=== PATIENT | female | born 1960 | race African-American/Black ===

== ENCOUNTER 2021-02-08 20:09 | Inpatient (IN) | payer OTHER ==
[2021-02-08 22:20] VITALS: BMI 34.5
[2021-02-08] MEDS ORDERED: Acetaminophen 325 MG TAB PO PRN (23:51)
[2021-02-08] MEDS ORDERED: Ondansetron PF 4 MG/2 ML Vial IVP PRN (23:51)
[2021-02-09] MEDS: Morphine 2 MG/ML VIAL SLOW IVP PRN ×6 (00:13→20:39)
[2021-02-09 00:16] LABS: SARS-CoV-2 NAA Rapid Test Not Detected (NotDetected)
[2021-02-09 01:26] LABS: Troponin I Less than 0.010 ng/mL (< 0.028)
[2021-02-09 05:43] LABS: #Basophils 0.1 thou/uL (0.0-0.2); #Eosinphils 0.1 thou/uL (0.0-0.7); #Lymphocytes 2.4 thou/uL (1.20-3.40); #Monocytes 0.4 thou/uL (0.11-0.59); #Neutrophils 1.9 thou/uL (1.40-6.50); %Basophils 1.4 % (0.0-1.0); %Eosinophils 2.4 % (0.0-10.0); %Lymphocytes 48.9 % (21.0-51.0); %Monocytes 7.6 % (0.0-10.0); %Neutrophils 39.8 % (42.0-75.0); Mean Corpuscular HGB CONC 33.4 g/dL (32.0-36.0); Mean Platelet Volume 7.5 fL (7.4-10.4); Platelet Count 187 thou/uL (130-400); RBC Distribution Width 12.3 % (11.5-14.5); Red Blood Cell (RBC) Count 3.82 mill/uL (4.20-5.40); White Blood Cell (WBC) Count 4.9 thou/uL (4.8-10.8)
[2021-02-09 06:00] LABS: Anion Gap 9 mmol/L (10-20); BUN (Urea Nitrogen) 16 mg/dL (9.8-20.1); Calc. Creatinine Clearance 98 mL/min (70-130); Calcium 8.4 mg/dL (7.8-10.44); Carbon Dioxide 23 mmol/L (22-29); Chloride 111 mmol/L (98-107); Glucose 136 mg/dL (70-105); Potassium 3.4 mmol/L (3.5-5.1); Sodium 140 mmol/L (136-145)
[2021-02-09] MEDS: Nitroglycerin 2% Ointment 1 INCH/1 GM Packet TOP SCH ×3 (06:45→20:44)
[2021-02-09 10:56] LABS: Troponin I 0.301 ng/mL (< 0.028)
[2021-02-09] MEDS ORDERED: Enoxaparin Sodium 40 MG/0.4 ML SYRINGE SC SCH (11:15)
[2021-02-09] MEDS: Famotidine 20 MG TAB PO SCH ×2 (11:16→20:42)
[2021-02-09] MEDS: Enoxaparin Sodium 80 MG/0.8 ML SYRINGE SC SCH ×2 (11:27→20:48)
[2021-02-09] MEDS: Aspirin Chewable 81 MG TAB PO SCH (11:28)
[2021-02-09] MEDS: Metoprolol Tartrate 25 MG TAB PO SCH ×2 (11:29→20:43)
[2021-02-09] MEDS: Atorvastatin Calcium 40 MG TAB PO SCH (11:29)
[2021-02-09] MEDS: Clopidogrel Bisulfate 75 MG TAB PO SCH (11:29)
[2021-02-10] MEDS: Morphine 2 MG/ML VIAL SLOW IVP PRN ×3 (00:08→10:59)
[2021-02-10 05:41] LABS: Eosinophils 1 % (0-10); Lymphocytes 64 % (21-51); MDiff Complete? YES; Mean Corpuscular Hemoglobin 34.7 pg (27.0-31.0); Mean Platelet Volume 7.8 fL (7.4-10.4); Monocytes 8 % (0-10); Neutrophil 26 % (42-75); Platelet Count 193 thou/uL (130-400); Platelet Morphology Comment Appears Adequate; RBC Distribution Width 12.2 % (11.5-14.5); RBC Morphology Normal; Reactive Lymphocytes 1 % (0-10); Red Blood Cell (RBC) Count 3.75 mill/uL (4.20-5.40); White Blood Cell (WBC) Count 4.8 thou/uL (4.8-10.8)
[2021-02-10 05:48] LABS: Anion Gap 10 mmol/L (10-20); BUN (Urea Nitrogen) 18 mg/dL (9.8-20.1); Calc. Creatinine Clearance 106 mL/min (70-130); Calcium 8.6 mg/dL (7.8-10.44); Carbon Dioxide 22 mmol/L (22-29); Chloride 113 mmol/L (98-107); Glucose 102 mg/dL (70-105); Potassium 3.8 mmol/L (3.5-5.1); Sodium 141 mmol/L (136-145)
[2021-02-10 05:54] LABS: Troponin I 4.629 ng/mL (< 0.028)
[2021-02-10] MEDS: Nitroglycerin 2% Ointment 1 INCH/1 GM Packet TOP SCH ×2 (06:08→16:24)
[2021-02-10] MEDS ORDERED: Iopamidol 370 76% 100 ML VIAL ONE (09:00)
[2021-02-10] MEDS: Enoxaparin Sodium 80 MG/0.8 ML SYRINGE SC SCH (09:06)
[2021-02-10] MEDS: Clopidogrel Bisulfate 75 MG TAB PO SCH (09:23)
[2021-02-10] MEDS ORDERED: Communication Order-Pharmacy FS SCH (09:30)
[2021-02-10] MEDS: Aspirin Chewable 81 MG TAB PO SCH (10:03)
[2021-02-10] MEDS: Metoprolol Tartrate 25 MG TAB PO SCH ×2 (10:04→21:23)
[2021-02-10] MEDS: Atorvastatin Calcium 40 MG TAB PO SCH (10:04)
[2021-02-10] MEDS: Famotidine 20 MG TAB PO SCH (10:04)
[2021-02-10] MEDS ORDERED: Lidocaine 1% (PF) 30 ML VIAL ONE (11:28)
[2021-02-10] MEDS ORDERED: Nitroglycerin 100MG/250ML BOT 250 ML ONE (12:03)
[2021-02-10] MEDS ORDERED: Heparin 10,000 UNITS/ 10 ML VIAL ONE (12:03)
[2021-02-10] MEDS ORDERED: Verapamil 5 MG/2 ML VIAL ONE (12:03)
[2021-02-10] MEDS ORDERED: Nitroglycerin 0.4 MG TAB (25 Tab Bottle) SL PRN ×2 (12:40→13:40)
[2021-02-10] MEDS ORDERED: Sodium Chloride 0.9% 200 ML IV PRN ×2 (12:40→13:40)
[2021-02-10] MEDS ORDERED: Acetaminophen/Codeine 30-300mg Tablet PO PRN ×3 (12:40→13:40)
[2021-02-10] MEDS: Acetaminophen/Codeine 30-300mg Tablet PO PRN (17:44)
[2021-02-10] MEDS: Pantoprazole 40 MG VIAL IVP SCH (21:23)
[2021-02-11] MEDS: Acetaminophen/Codeine 30-300mg Tablet PO PRN (03:20)
[2021-02-11 05:21] LABS: #Eosinphils 0.1 thou/uL (0.0-0.7); #Lymphocytes 2.4 thou/uL (1.20-3.40); #Monocytes 0.5 thou/uL (0.11-0.59); #Neutrophils 1.9 thou/uL (1.40-6.50); %Eosinophils 2.3 % (0.0-10.0); %Lymphocytes 49.5 % (21.0-51.0); %Monocytes 9.4 % (0.0-10.0); %Neutrophils 37.9 % (42.0-75.0); Hemoglobin 12.8 g/dL (12.0-16.0); Mean Corpuscular HGB CONC 33.6 g/dL (32.0-36.0); Mean Corpuscular Hemoglobin 33.9 pg (27.0-31.0); Mean Platelet Volume 7.6 fL (7.4-10.4); Platelet Count 183 thou/uL (130-400); Red Blood Cell (RBC) Count 3.78 mill/uL (4.20-5.40); White Blood Cell (WBC) Count 4.9 thou/uL (4.8-10.8)
[2021-02-11 05:44] LABS: BUN (Urea Nitrogen) 13 mg/dL (9.8-20.1); Calc. Creatinine Clearance 107 mL/min (70-130); Calcium 8.6 mg/dL (7.8-10.44); Carbon Dioxide 25 mmol/L (22-29); Glucose 100 mg/dL (70-105)
[2021-02-11 05:49] LABS: Anion Gap 12 mmol/L (10-20); Chloride 109 mmol/L (98-107); Potassium 3.7 mmol/L (3.5-5.1); Sodium 139 mmol/L (136-145)
[2021-02-11] MEDS: Atorvastatin Calcium 40 MG TAB PO SCH (07:47)
[2021-02-11] MEDS: Clopidogrel Bisulfate 75 MG TAB PO SCH (07:47)
[2021-02-11] MEDS: Aspirin Chewable 81 MG TAB PO SCH (07:47)
[2021-02-11] MEDS: Pantoprazole 40 MG VIAL IVP SCH (07:47)
[2021-02-11] MEDS: Metoprolol Tartrate 25 MG TAB PO SCH (07:47)
[2021-02-11 07:53] VITALS: BP 166/78; TEMP 98
== END 2021-02-11 10:19 | disposition home or self-care (01) | DRG 287 ==
LOC: OBSVTOIN 20:09 → UNDOADMOB 20:09 → 2SW 20:09 → INTOOBSV 20:09 → OBSVTOIN 02-09 18:01 → 2SW 02-09 18:01 → UNDODISIN 02-11 10:19
PROVIDERS: ADMIT Internal Medicine; ATTEND Internal Medicine
PROC: 4A023N7 Measurement of Cardiac Sampling and Pressure, Left Heart, Percutaneous Approach (ICD-10-PCS; principal; 2021-02-10)
PROC: B2111ZZ Fluoroscopy of Multiple Coronary Arteries using Low Osmolar Contrast (ICD-10-PCS; 2021-02-10)
PROC: B2151ZZ Fluoroscopy of Left Heart using Low Osmolar Contrast (ICD-10-PCS; 2021-02-10)
DX: I25.110 Atherosclerotic heart disease of native coronary artery with unstable angina pectoris (principal); Z20.822 Contact with and (suspected) exposure to COVID-19; I10 Essential (primary) hypertension; E78.5 Hyperlipidemia, unspecified; K21.9 Gastro-esophageal reflux disease without esophagitis; J44.9 Chronic obstructive pulmonary disease, unspecified; F32.9 Major depressive disorder, single episode, unspecified; F41.9 Anxiety disorder, unspecified; F17.210 Nicotine dependence, cigarettes, uncomplicated; I49.3 Ventricular premature depolarization; M10.9 Gout, unspecified; M54.12 Radiculopathy, cervical region; E78.00 Pure hypercholesterolemia, unspecified; Z88.0 Allergy status to penicillin; Z79.01 Long term (current) use of anticoagulants; Z79.82 Long term (current) use of aspirin; Z79.891 Long term (current) use of opiate analgesic; Z79.899 Other long term (current) drug therapy; Z90.710 Acquired absence of both cervix and uterus; Z86.19 Personal history of other infectious and parasitic diseases; Z83.3 Family history of diabetes mellitus; Z82.49 Family history of ischemic heart disease and other diseases of the circulatory system
CPT/HCPCS: 36415; 80048; 84484; 85025; 85652; 93005; 93010; 93306; 93458; 96372; 96374; 96376; C9113; G0378; J1644; J1650; J2001; J2270; Q9967; U0002; U0005

== ENCOUNTER 2023-04-14 12:06 | Observation (INO) | payer OTHER ==
[2023-04-14 12:41] LABS: #Eosinphils 0.1 thou/uL (0.0-0.7); #Monocytes 0.3 thou/uL (0.11-0.59); #Neutrophils 3.4 thou/uL (1.40-6.50); %Basophils 0.3 % (0.0-1.0); %Eosinophils 1.3 % (0.0-10.0); %Lymphocytes 38.3 % (21.0-51.0); %Monocytes 4.5 % (0.0-10.0); %Neutrophils 55.4 % (42.0-75.0); Hematocrit 42.5 % (36.0-47.0); Hemoglobin 14.3 g/dL (12.0-16.0); Mean Corpuscular HGB CONC 33.6 g/dL (32.0-36.0); Mean Corpuscular Hemoglobin 33.1 pg (27.0-31.0); Mean Corpuscular Volume 98.4 fl (78.0-98.0); Mean Platelet Volume 10.5 fL (7.4-10.4); Platelet Count 172 10x3/uL (130-400); Red Blood Cell (RBC) Count 4.32 mill/uL (4.20-5.40); White Blood Cell (WBC) Count 6.2 10x3/uL (4.8-10.8)
[2023-04-14 13:11] LABS: ALT (SGPT) 18 U/L (8-55); AST (SGOT) 18 U/L (5-34); Albumin 4.1 g/dL (3.4-4.8); Alkaline Phosphatase 65 U/L (40-110); Anion Gap 12 mmol/L (10-20); BUN (Urea Nitrogen) 11 mg/dL (9.8-20.1); Bilirubin, Total 0.3 mg/dL (0.2-1.2); Calc. Creatinine Clearance 0 mL/min (70-130); Calcium 9.3 mg/dL (7.8-10.44); Carbon Dioxide 28 mmol/L (23-31); Chloride 104 mmol/L (98-107); Estimated GFR 75; Globulin 3.7 g/dL (2.4-3.5); Glucose 138 mg/dL (80-115); Potassium 3.9 mmol/L (3.5-5.1); Protein, Total 7.8 g/dL (5.8-8.1); Sodium 140 mmol/L (136-145)
[2023-04-14] MEDS ORDERED: Aspirin Chewable 81 MG TAB ONE (14:52)
[2023-04-14 16:19] LABS: Troponin I Less than 0.010 ng/mL (< 0.028)
[2023-04-14] MEDS ORDERED: Acetaminophen 325 MG TAB ONE (16:23)
== END 2023-04-14 18:00 | disposition home or self-care (01) ==
LOC: ERS 12:06 → ERHOLD 15:34
PROVIDERS: ADMIT Family Medicine; ATTEND Family Medicine
DX: R07.89 Other chest pain (principal); K21.9 Gastro-esophageal reflux disease without esophagitis; E78.00 Pure hypercholesterolemia, unspecified; I10 Essential (primary) hypertension; F17.210 Nicotine dependence, cigarettes, uncomplicated; Z79.82 Long term (current) use of aspirin; Z79.899 Other long term (current) drug therapy
CPT/HCPCS: 36415; 71045; 80053; 84484; 85025; 93005; G0378

== ENCOUNTER 2025-04-18 14:25 | Outpatient (CLI) | payer OTHER ==
[2025-04-18 16:00] LABS: #Basophils Less than 0.03 10x3/uL (0.0-0.2); #Eosinophils 0.13 10x3/uL (0.0-0.7); #Monocytes 0.39 10x3/uL (0.11-0.59); #Neutrophils 2.14 10x3/uL (1.40-6.50); %Basophils 0.4 % (0.0-1.0); %Eosinophils 2.6 % (0.0-10.0); %Lymphocytes 45.4 % (21.0-51.0); %Monocytes 7.9 % (0.0-10.0); %Neutrophils 43.5 % (42.0-75.0); Anion Gap 11 mmol/L (10-20); BUN (Urea Nitrogen) 13 mg/dL (9.8-20.1); Calc. Creatinine Clearance 0 mL/min (70-130); Calcium 8.7 mg/dL (7.8-10.44); Carbon Dioxide 22 mmol/L (23-31); Chloride 110 mmol/L (98-107); Glucose 90 mg/dL (80-115); Hematocrit 40.3 % (36.0-47.0); Hemoglobin 13.4 g/dL (12.0-16.0); Mean Corpuscular Hemoglobin 33.2 pg (27.0-31.0); Mean Corpuscular Volume 99.8 fL (78.0-98.0); Platelet Count 148 10x3/uL (130-400); Potassium 4.0 mmol/L (3.5-5.1); Red Blood Cell (RBC) Count 4.04 mill/uL (4.20-5.40); Sodium 139 mmol/L (136-145); White Blood Cell (WBC) Count 4.93 10x3/uL (4.8-10.8)
== END 2025-04-18 14:26 | disposition home or self-care (01) ==
LOC: LABBT 14:25
PROVIDERS: ATTEND Orthopaedic Surgery
DX: Z01.818 Encounter for other preprocedural examination (principal); M65.331 Trigger finger, right middle finger
CPT/HCPCS: 71046; 80048; 85025

== ENCOUNTER 2025-04-21 05:45 | Day surgery (SDC) | payer OTHER ==
[2025-04-18 14:54] VITALS: BMI 32.4
[2025-04-21] MEDS ORDERED: Lidocaine 1% PF 5 ML VIAL ONE (08:04)
[2025-04-21] MEDS ORDERED: PROPOFOL 20 ML ONE (08:04)
[2025-04-21] MEDS ORDERED: Ondansetron PF 4 MG/2 ML Vial ONE (08:04)
[2025-04-21] MEDS ORDERED: fentaNYL PF 100 MCG/2 ML SYRINGE ONE (08:04)
[2025-04-21] MEDS ORDERED: Etomidate 40 MG (20 mL) VIAL ONE (08:04)
[2025-04-21] MEDS ORDERED: PHENYLEPHRINE-NS 100 MCG/ML 10 ML SYRINGE ONE (08:51)
[2025-04-21] MEDS ORDERED: Ketorolac Tromethamine 30 MG (1 mL) VIAL ONE (09:35)
[2025-04-21] MEDS ORDERED: HYDROcodone/Acetaminophen 5/325 mg Tablet ONE (10:43)
== END 2025-04-21 11:01 | disposition home or self-care (01) ==
LOC: SDC 05:45
PROVIDERS: ATTEND Orthopaedic Surgery
PROC: 0LN70ZZ Release Right Hand Tendon, Open Approach (ICD-10-PCS; principal; 2025-04-21)
DX: M65.331 Trigger finger, right middle finger (principal); I10 Essential (primary) hypertension; I25.10 Atherosclerotic heart disease of native coronary artery without angina pectoris; J44.9 Chronic obstructive pulmonary disease, unspecified; E78.00 Pure hypercholesterolemia, unspecified; Z88.0 Allergy status to penicillin; Z91.040 Latex allergy status; Z79.899 Other long term (current) drug therapy; Z79.51 Long term (current) use of inhaled steroids
CPT/HCPCS: J0665; J1100; J1885; J2405; J2704; J3010; J3490; J7620